=== PATIENT | female | born 1955 | race African-American/Black ===

== ENCOUNTER 2019-03-19 21:53 | Inpatient (IN) | payer SELFPAY ==
[2019-03-19] MEDS ORDERED: Pantoprazole 40 MG VIAL ONE (22:09)
[2019-03-19] MEDS ORDERED: Ondansetron PF 4 MG/2 ML Vial ONE (22:09)
--- NOTE | 2019-03-19 22:18 | RAD ---
Chest one view HISTORY: Vomiting. Dizziness. COMPARISON: 03/12/2017. FINDINGS: Cardiac silhouette is magnified by projection. Pulmonary vasculature is unremarkable. Media stinum is midline. No confluent airspace consolidation or evidence of pneumothorax. IMPRESSION: No active cardiopulmonary abnormalities are demonstrated.
[2019-03-19 22:25] LABS: Hemoglobin 11.5 g/dL (12.0-16.0); Mean Corpuscular HGB CONC 31.4 g/dL (32.0-36.0); Mean Corpuscular Hemoglobin 28.4 pg (27.0-31.0); Mean Corpuscular Volume 90.6 fL (78.0-98.0); RBC Distribution Width 12.2 % (11.5-14.5); Red Blood Cell (RBC) Count 4.06 mill/uL (4.20-5.40); White Blood Cell (WBC) Count 15.6 thou/uL (4.8-10.8)
[2019-03-19 22:31] LABS: INR-International Normal Ratio 1.1; PTT 27.4 SEC (22.9-36.1); Prothrombin Time 14.3 SEC (12.0-14.7)
[2019-03-19 22:40] LABS: ALT (SGPT) 33 U/L (8-55); AST (SGOT) 52 U/L (5-34); Albumin 3.3 g/dL (3.4-4.8); Alkaline Phosphatase 65 U/L (40-150); Anion Gap 14 mmol/L (10-20); BUN (Urea Nitrogen) 16 mg/dL (9.8-20.1); Bilirubin, Total 0.6 mg/dL (0.2-1.2); Calc. Creatinine Clearance 0 mL/min (70-130); Carbon Dioxide 26 mmol/L (23-31); Chloride 103 mmol/L (98-107); Estimated GFR-MDRD 68; Glucose 202 mg/dL (80-115); Potassium 4.2 mmol/L (3.5-5.1); Protein, Total 6.3 g/dL (6.0-8.3); Sodium 139 mmol/L (136-145)
[2019-03-19 22:42] LABS: Eosinophils 2 % (0-10); Large Platelets SLIGHT; Lymphocytes 52 % (21-51); MDiff Complete? YES; Mean Platelet Volume 11.4 fL (7.4-10.4); Monocytes 8 % (0-10); Neutrophil 38 % (42-75); Platelet Count 158 thou/uL (130-400); Platelet Morphology Comment Appears Adequate
[2019-03-19 23:29] LABS: Iron 142 ug/dL (50-170); Iron Binding Capacity, Total 384 mcg/dL (265-497)
[2019-03-20 02:01] LABS: Hemoglobin 9.3 g/dL (12.0-16.0)
[2019-03-20 02:06] VITALS: BMI 29.0
[2019-03-20 02:34] LABS: CKMB 1.2 ng/mL (0-6.6)
[2019-03-20] MEDS ORDERED: Sodium Chloride 0.9% 1,000 ML IV SCH (02:44)
[2019-03-20] MEDS ORDERED: Ondansetron PF 4 MG/2 ML Vial IVP PRN (03:53)
[2019-03-20] MEDS ORDERED: Dextrose 5% in Water 1,000 ML IV PRN (03:53)
[2019-03-20] MEDS ORDERED: Acetaminophen 325 MG TAB PO PRN (03:53)
[2019-03-20] MEDS ORDERED: Insulin Regular 300 UNITS/3 ML VIAL SC PRN (03:53)
[2019-03-20] MEDS ORDERED: Dextrose 50% Abboject 50 ML SYRINGE SLOW IVP PRN (03:53)
[2019-03-20] MEDS ORDERED: Acetaminophen 650 MG Suppository PR PRN (03:53)
[2019-03-20] MEDS ORDERED: Ondansetron ODT 4 MG TAB PO PRN (03:53)
[2019-03-20] MEDS ORDERED: Calcium Carbonate 500 MG ChewTAB PO PRN (03:53)
[2019-03-20] MEDS ORDERED: cloNIDine 0.1 MG TAB PO PRN (04:15)
--- NOTE | 2019-03-20 04:41 | HP ---
PRIMARY CARE PHYSICIAN: [facility]. CHIEF COMPLAINT: Hematemesis, melena with lightheadedness of one day duration. HISTORY OF PRESENT ILLNESS: The patient is a 63-year-old female with diabetes mellitus type 2, presented to the emergency room with above complaints. Yesterday evening, the patient had sudden onset of vomiting along with lightheadedness, dizziness, and shortness of breath. The vomitus contained fresh blood. She also noticed that her stools were dark earlier today. She also had generalized abdominal cramping. No recent weight loss reported. She denies any EGD, colonoscopy in the past. No fevers, chills, or use of NSAIDs reported. No chest pain, chest pain or palpitations reported. PAST MEDICAL HISTORY: Diabetes mellitus, type 2 and hypertension. PAST SURGICAL HISTORY: Hysterectomy. ALLERGIES: NO KNOWN DRUG ALLERGIES. CURRENT HOME MEDICATION: Novolin 70/30, 20 units daily. SOCIAL HISTORY: The patient smokes up to a half pack a day. No alcohol or drug use. She is full code, makes her own decision with the help of her family. FAMILY HISTORY: Positive for lung cancer in the father, liver cancer in the brother. Mother with diabetes, lupus, and hypertension. REVIEW OF SYSTEMS: All other review of systems was reviewed and was found negative. PHYSICAL EXAMINATION: VITAL SIGNS: Temperature 98.3, respirations 20, pulse rate of 116 with blood pressure of 127/91, O2 saturation 97% on room air. GENERAL: A 63-year-old female, in mild distress due to epigastric discomfort. HEENT: Head, atraumatic and normocephalic. Sclerae are anicteric. Dry mucous membranes. No oral lesion. NECK: Supple. No JVD appreciated. No carotid bruit. LUNGS: Clear to auscultation bilaterally. No wheezing, rales, or rhonchi. HEART: S1, S2 present. Regular rate and rhythm. No rubs or gallops appreciated. ABDOMEN: Soft, mild generalized tenderness mainly in the periumbilical region. No rebound or guarding. No costovertebral angle tenderness. Bowel sounds are present. EXTREMITIES: No edema or calf tenderness. NEUROLOGIC: Grossly nonfocal. Moves all 4 extremities. PSYCHIATRY: Alert, awake, oriented x3. SKIN: Warm and dry. LYMPH NODES: No palpable lymph nodes in the neck. PERIPHERAL VASCULAR: Radial pulse is palpable bilaterally. MUSCULOSKELETAL: No joint swelling or tenderness. LABORATORY FINDINGS: WBC on admission was 15.6 with hemoglobin 11.5, hematocrit 36.8, platelet of 158. Repeat hemoglobin 3 hours later is 9.3. PT/INR, PTT in normal range. Troponin 0.056 with normal CK-MB. Iron of 142, TIBC 384, ferritin 39.5. Sodium 139, potassium 4.2, chloride 103, bicarb 26, BUN of 16, creatinine 1.0, glucose of 202. AST of 52, otherwise LFTs in normal range. Albumin 3.3. IMAGING STUDIES: Chest x-ray by my review was negative for infiltrate or edema. EKG by my review showed sinus tachycardia. IMPRESSION: 1. Gastrointestinal bleeding, suspected secondary to peptic ulcer disease. 2. Acute blood loss anemia. 3. Leukocytosis, unlikely to be infectious. 4. Chronic kidney disease, stage 2. 5. Diabetes mellitus, type 2. 6. Elevated troponin secondary to demand ischemia/type 2 myocardial infarction. 7. Hypertension. PLAN: The patient will be monitored on the telemetry unit. We will continue Protonix drip along with IV fluids. We will check orthostatic vitals in a.m. We will recheck hemoglobin every 6 hours x3. We will repeat one more set of troponin with the next hemoglobin check. The patient will be kept n.p.o. Dr. Evans has been notified by the ER physician. The patient has been typed and screened. We will transfuse to keep hemoglobin more than 7. We will hold 70/30 as well as lisinopril for now. Plan of care was discussed with the patient in detail and she stated understanding. The patient will require 2 to 3 days for stabilization. Job ID: [id number]
[2019-03-20] MEDS: Sodium Chloride 0.9% 1,000 ML IV SCH ×3 (04:43→21:44)
[2019-03-20] MEDS: Insulin Regular 300 UNITS/3 ML VIAL SC PRN (05:44)
[2019-03-20 07:35] LABS: Hemoglobin 7.7 g/dL (12.0-16.0)
[2019-03-20 08:22] LABS: CKMB 1.5 ng/mL (0-6.6)
[2019-03-20] MEDS ORDERED: Lidocaine 1% PF 5 ML VIAL ONE (09:42)
[2019-03-20] MEDS ORDERED: EPINEPHrine 1 MG/10 ML Abboject SYRINGE ONE (09:42)
[2019-03-20] MEDS ORDERED: PHENYLEPHRINE-NS 100 MCG/ML 10 ML SYRINGE ONE (09:42)
[2019-03-20] MEDS ORDERED: Ondansetron PF 4 MG/2 ML Vial ONE (09:42)
[2019-03-20] MEDS ORDERED: PROPOFOL 200 MG/20 ML VIAL ONE (09:42)
[2019-03-20 13:10] LABS: Hemoglobin 7.3 g/dL (12.0-16.0)
[2019-03-20] MEDS ORDERED: Octreotide Acetate 100 MCG/ML VIAL SLOW IVP SCH (16:00)
[2019-03-20] MEDS ORDERED: Octreotide Acetate 1,250 MCG in Sodium Chloride 0.9% 250 ML 250 ML IVPB SCH (16:00)
[2019-03-20] MEDS ORDERED: Octreotide Acetate 50 MCG/ML AMP SLOW IVP SCH (16:00)
--- NOTE | 2019-03-20 17:51 | PDOC.PN ---
- Subjective Encounter Start Date: 03/20/19 Encounter Start Time: 17:49 Ms. Delgadillo was seen today in follow-up of GI- bleed. She says she feels achy all over. She had some more melenotic stools today. - Objective Resuscitation Status - Order Detail: 03/20/19 03:53 Resuscitation Status Routine Resuscitation Status: FULL: Full Resuscitation MAR Reviewed: Yes Vital Signs & Weight: Vital Signs (12 hours) Temp Pulse Pulse Resp BP BP BP 03/20/19 16:17 98.6 F 106 H 18 117/75 03/20/19 14:12 98.0 F 138 H 18 116/55 L 03/20/19 13:57 98.2 F 138 H 18 123/66 03/20/19 13:52 98.0 F 138 H 18 116/55 L 03/20/19 11:00 98.1 F 155 H 18 140/72 03/20/19 08:00 03/20/19 07:53 98.4 F 108 H 16 121/66 118/62 BP Pulse Ox 03/20/19 16:17 03/20/19 14:12 03/20/19 13:57 100 03/20/19 13:52 03/20/19 11:00 03/20/19 08:00 98 03/20/19 07:53 109/65 95 Weight Admit Weight 185 lb Weight 185 lb I&O: 03/19/19 03/20/19 03/21/19 06:59 06:59 06:59 Intake Total 800 Output Total 700 Balance 100 Result Diagrams: 03/20/19 13:03 03/19/19 22:08 Additional Labs: Accuchecks 03/20/19 03/20/19 03/20/19 16:39 10:58 04:50 POC Glucose 352 H 372 H 350 H 03/19/19 22:04 POC Glucose 191 H Phys Exam - Physical Examination HEENT: PERRLA Respiratory: no wheezing, no rales, no rhonchi, clear to auscultation bilateral Cardiovascular: RRR, no significant murmur, no rub Gastrointestinal: soft, non-tender, no distention, positive bowel sounds Musculoskeletal: no edema, pulses present Dx/Plan (1) GI bleed Code(s): K92.2 - GASTROINTESTINAL HEMORRHAGE, UNSPECIFIED Status: Acute (2) Acute blood loss anemia Code(s): D62 - ACUTE POSTHEMORRHAGIC ANEMIA Status: Acute (3) Diabetes mellitus type 2 in obese Code(s): E11.9 - TYPE 2 DIABETES MELLITUS WITHOUT COMPLICATIONS; E66.9 - OBESITY , UNSPECIFIED Status: Chronic (4) Hypertension Code(s): I10 - ESSENTIAL (PRIMARY) HYPERTENSION Status: Chronic - Plan * GI- bleed with acute blood loss anemia- continue IV Protonix * Plan is for EGD later today * Her H&H has dropped significantly- continue to transfuse as needed * DM- blood glucose is elevated- will re-start she home insulin, but at a lower dose and titrate - continue SSI.
[2019-03-20] MEDS ORDERED: Promethazine HCl 25 MG/ML VIAL SLOW IVP PRN (18:46)
[2019-03-20] MEDS ORDERED: Promethazine HCl 25 MG/ML VIAL IM PRN (18:46)
[2019-03-20] MEDS ORDERED: Ondansetron HCl/PF 4 MG/2 ML Vial IVP PRN (18:46)
[2019-03-20] MEDS ORDERED: Insulin Regular 300 UNITS/3 ML VIAL ONE (19:06)
--- NOTE | 2019-03-20 19:21 | OP ---
DATE OF PROCEDURE: 03/20/2019 PROCEDURES PERFORMED: Esophagogastroduodenoscopy with control of hemorrhage and biopsy. PREOPERATIVE DIAGNOSES: Gastrointestinal bleed and anemia of acute blood loss. DESCRIPTION OF PROCEDURE: Informed consent was obtained from the patient. She was sedated with total intravenous anesthesia. The bite block was placed and the endoscope was advanced easily to the second portion of the duodenum and retroflexion was performed in the stomach. The esophagus was normal. The GE junction was normal. The stomach had red blood staining throughout the entire mucosa of the stomach. This was washed off in the antrum and proximal body. The fundus was not well visualized due to some retained organized clot. There was a large 2 cm ulcer in the antrum, which was cratered and had a flat red vessel in the base. This was cauterized with a 10-Telugu Gold probe. After the site was injected with 4 mL of epinephrine 1:10,000, 1 mL per quadrant in four quadrants. Good hemostasis was confirmed with electrocautery of the vessel. There were a few other smaller 0.8 to 1 cm ulcers in the antrum as well. These did not have obvious stigmata of recent bleeding. The pylorus and first and second portions of the duodenum. There was red blood staining throughout the duodenum and this was washed clear without additional signs of bleeding source in these areas. IMPRESSION: 1. Large 2 cm antral ulcer with a flat red vessel, which was injected with epinephrine and cauterized with a 10-Telugu Gold probe and good hemostasis was confirmed. 2. Few smaller 0.8 to 1 cm antral ulcers without stigmata of recent bleeding. 3. Otherwise normal esophagogastroduodenoscopy. There were no varices. There was red blood and organized clot in the fundus that obscured views of the fundus and proximal gastric body. 4. Biopsies were obtained from the antrum of the stomach to rule out Helicobacter pylori and also from the ulcer edges to rule out neoplastic process. RECOMMENDATIONS: 1. Continue proton pump inhibitor drip. 2. Await histopathology. 3. Follow trend of the hemoglobin. 4. Octreotide can be discontinued. Job ID: [id number]
[2019-03-20] MEDS: Pantoprazole 80 MG, Admixture Fee 1 EACH in Sodium Chloride 0.9% 100 ML IVPB SCH (21:44)
--- NOTE | 2019-03-20 21:57 | CON ---
DATE OF CONSULTATION: 03/20/2019 CHIEF COMPLAINT: Vomited blood. HISTORY OF PRESENT ILLNESS: Ms. Delgadillo is a 63-year-old woman who last night around 8 or 9 p.m. had a sudden lower abdominal cramping, discomfort and urge to have a bowel movement. She passed a black tar like stool. A little bit later she vomited dark red blood with clots. She vomited red blood 3 more times after that. She came onto the emergency room for further care and has not had any further vomiting or bowel movements since that time. She has no ongoing abdominal pain. No preceding history of peptic ulcer or GI bleeding. She takes aspirin 81 mg daily. No other NSAIDs. Her weight has been stable. She has had no prior endoscopy or colonoscopy. PAST MEDICAL HISTORY: Diabetes mellitus type 2, hypertension. PAST SURGICAL HISTORY: Hysterectomy. FAMILY HISTORY: Her father had lung cancer. Brother had liver cancer. SOCIAL HISTORY: She smokes 5 or 6 cigarettes per day. No alcohol. She smoked marijuana in the remote past. ALLERGIES: NO KNOWN DRUG ALLERGIES. MEDICATIONS: Prior to admission Novolin 70/30, 20 units daily. REVIEW OF SYSTEMS: Negative x10 systems reviewed except as stated in history of present illness. PHYSICAL EXAMINATION: VITAL SIGNS: Temperature is 98, pulse has been running in the 130s, blood pressure 116/55. GENERAL: She is in no acute distress. She is alert and oriented x3. HEENT: Eyes have no scleral icterus. Oropharynx shows dry mucous membranes and otherwise no lesions. NECK: No cervical or supraclavicular lymphadenopathy. LUNGS: Clear to auscultation bilaterally. HEART: Tachycardic. S1, S2. ABDOMEN: Soft, nontender, and nondistended. Bowel sounds are present. EXTREMITIES: No lower extremity edema. RECTAL: Reveals dark red blood in the rectal vault. This appears more consistent with an upper GI source. LABORATORY DATA: White blood cell count 15.6, hemoglobin 7.3, platelets 158. INR 1.1. Ferritin is 39, iron 142, TIBC 348, creatinine 1.0, bilirubin 0.6, AST 52, ALT 33, albumin 3.3, alkaline phosphatase 65. IMPRESSION: 1. Upper gastrointestinal bleed presenting with hematemesis and melena. 2. Anemia of acute blood loss. Her hemoglobin has dropped from 11.5 on presentation last night down to 7.3 this afternoon. She is tachycardic with this. 3. Abnormal liver tests. Her AST is greater than the ALT. Her platelets are in the lower end of normal at 158. Her albumin is a little bit low. All these could point to chronic liver disease. Given that I would start her on octreotide until endoscopy is performed. RECOMMENDATIONS: 1. Proton pump inhibitor drip. 2. Endoscopy today. 3. Transfusion. 4. Octreotide until and after endoscopy. Job ID: [id number]
[2019-03-20] MEDS ORDERED: Pantoprazole 40 MG VIAL IVP SCH (23:45)
--- NOTE | 2019-03-21 00:17 | PDOC.EVN ---
Event Note - Event Note Event Note: RN called - Patient has several episodes of Melena/ H/H 7.3 earlier. Will check H/H now (was ordered at 1900 - not done since patient was in procedure)
[2019-03-21] MEDS: Sodium Chloride 0.9% 1,000 ML IV SCH ×3 (04:23→21:40)
[2019-03-21] MEDS: Pantoprazole 80 MG, Admixture Fee 1 EACH in Sodium Chloride 0.9% 100 ML IVPB SCH (04:23)
[2019-03-21 06:58] LABS: Anion Gap 9 mmol/L (10-20); BUN (Urea Nitrogen) 27 mg/dL (9.8-20.1); Calc. Creatinine Clearance 83 mL/min (70-130); Calcium 7.8 mg/dL (7.8-10.44); Carbon Dioxide 23 mmol/L (23-31); Chloride 111 mmol/L (98-107); Estimated GFR-MDRD 75; Glucose 295 mg/dL (80-115); Magnesium 1.5 mg/dL (1.6-2.6); Potassium 4.3 mmol/L (3.5-5.1); Sodium 139 mmol/L (136-145)
[2019-03-21 07:38] LABS: #Basophils 0.1 thou/uL (0.0-0.2); #Lymphocytes 5.2 thou/uL (1.20-3.40); #Monocytes 1.2 thou/uL (0.11-0.59); #Neutrophils 9.8 thou/uL (1.40-6.50); %Basophils 0.4 % (0.0-1.0); %Eosinophils 0.3 % (0.0-10.0); %Lymphocytes 32.1 % (21.0-51.0); %Monocytes 7.2 % (0.0-10.0); %Neutrophils 60.1 % (42.0-75.0); Hemoglobin 7.4 g/dL (12.0-16.0); Mean Corpuscular HGB CONC 31.8 g/dL (32.0-36.0); Mean Corpuscular Hemoglobin 28.7 pg (27.0-31.0); Mean Corpuscular Volume 90.3 fL (78.0-98.0); Mean Platelet Volume 10.8 fL (7.4-10.4); Platelet Count 119 thou/uL (130-400); RBC Distribution Width 13.4 % (11.5-14.5); Red Blood Cell (RBC) Count 2.56 mill/uL (4.20-5.40); White Blood Cell (WBC) Count 16.4 thou/uL (4.8-10.8)
[2019-03-21] MEDS ORDERED: HumuLIN 70/30 (300 UNITS/3 ML VIAL) SC SCH (09:00)
[2019-03-21] MEDS: Insulin Glargine 15 UNITS in Pre-Filled Syringe 1 EACH SC SCH (09:34)
[2019-03-21] MEDS: Insulin Regular 300 UNITS/3 ML VIAL SC PRN ×2 (09:35→12:00)
--- NOTE | 2019-03-21 17:36 | PRG ---
DATE OF SERVICE: 03/21/2019 SUBJECTIVE: Ms. Delgadillo has no abdominal pain. She is tolerating her diet well. Currently, she is on clear liquids. OBJECTIVE: VITAL SIGNS: Temperature 98.2, pulse 91, blood pressure 171/75. GENERAL: She is in no acute distress. Alert and oriented x3. LUNGS: Clear to auscultation bilaterally. HEART: Regular rate and rhythm without murmur. ABDOMEN: Soft, nontender, nondistended. Bowel sounds are present. EXTREMITIES: No lower extremity edema. LABORATORY DATA: Her white blood cell count 16.4, hemoglobin 7.4, platelets 119. Creatinine is 0.9. IMPRESSION: 1. Large antral ulcer with additional smaller antral ulcers. Vessel was cauterized in the base of the large ulcer yesterday. Biopsies from the ulcer edge and stomach to evaluate for Helicobacter pylori or neoplastic process are still pending. 2. Anemia of acute blood loss. Hemoglobin is 7.4 today. RECOMMENDATIONS: 1. Continue proton pump inhibitor drip through tomorrow. We can likely change to b.i.d. dosing day after tomorrow. 2. Recheck her hemoglobin tomorrow morning and if it drops at all, would transfuse a unit of blood. 3. Advance diet. Job ID: [id number]
--- NOTE | 2019-03-21 18:23 | PDOC.PN ---
- Subjective Encounter Start Date: 03/21/19 Encounter Start Time: 10:45 Ms. Delgadillo was seen today in follow-up of Peptic ulcer. She is feeling better today. She notes some back pain, but otherwise she is ok. - Objective Resuscitation Status - Order Detail: 03/20/19 03:53 Resuscitation Status Routine Resuscitation Status: FULL: Full Resuscitation MAR Reviewed: Yes Vital Signs & Weight: Vital Signs (12 hours) Temp Pulse Resp BP BP Pulse Ox 03/21/19 15:00 98.2 F 91 18 171/75 H 100 03/21/19 11:00 98.9 F 88 18 134/63 100 03/21/19 08:00 98.4 F 94 16 132/65 99 Weight Admit Weight 185 lb Weight 186 lb I&O: 03/20/19 03/21/19 03/22/19 06:59 06:59 06:59 Intake Total 3200 2776 Output Total 1700 1900 Balance 1500 876 Result Diagrams: 03/21/19 06:14 03/21/19 06:14 Additional Labs: Accuchecks 03/21/19 03/21/19 03/21/19 16:52 12:04 08:15 POC Glucose 146 H 396 H 327 H 03/21/19 03/21/19 03/20/19 04:39 01:05 21:35 POC Glucose 270 H 343 H 383 H 03/20/19 19:05 POC Glucose 322 H Phys Exam - Physical Examination HEENT: PERRLA Respiratory: no wheezing, no rales, no rhonchi, clear to auscultation bilateral Cardiovascular: RRR, no significant murmur, no rub Gastrointestinal: soft, non-tender, no distention, positive bowel sounds Musculoskeletal: no edema, pulses present Dx/Plan (1) GI bleed Code(s): K92.2 - GASTROINTESTINAL HEMORRHAGE, UNSPECIFIED Status: Acute (2) Acute blood loss anemia Code(s): D62 - ACUTE POSTHEMORRHAGIC ANEMIA Status: Acute (3) Diabetes mellitus type 2 in obese Code(s): E11.9 - TYPE 2 DIABETES MELLITUS WITHOUT COMPLICATIONS; E66.9 - OBESITY , UNSPECIFIED Status: Chronic (4) Hypertension Code(s): I10 - ESSENTIAL (PRIMARY) HYPERTENSION Status: Chronic - Plan * Gastric ulcer with hemorrhage- continue Protonix drip * Acute blood loss anemia- Will continue to monitor her H&H and transfuse as needed * HTN- blood pressure is stable * DM- blood glucose is stable .
[2019-03-22] MEDS: Pantoprazole 80 MG, Admixture Fee 1 EACH in Sodium Chloride 0.9% 100 ML IVPB SCH ×2 (04:40→16:17)
[2019-03-22 05:26] LABS: #Basophils 0.1 thou/uL (0.0-0.2); #Eosinphils 0.2 thou/uL (0.0-0.7); #Monocytes 0.8 thou/uL (0.11-0.59); #Neutrophils 5.5 thou/uL (1.40-6.50); %Basophils 0.6 % (0.0-1.0); %Eosinophils 2.2 % (0.0-10.0); %Lymphocytes 43.2 % (21.0-51.0); %Monocytes 6.9 % (0.0-10.0); %Neutrophils 47.2 % (42.0-75.0); Hemoglobin 6.3 g/dL (12.0-16.0); Mean Corpuscular Hemoglobin 30.2 pg (27.0-31.0); Mean Corpuscular Volume 91.6 fL (78.0-98.0); Mean Platelet Volume 10.8 fL (7.4-10.4); Platelet Count 103 thou/uL (130-400); RBC Distribution Width 13.6 % (11.5-14.5); White Blood Cell (WBC) Count 11.5 thou/uL (4.8-10.8)
[2019-03-22] MEDS: Sodium Chloride 0.9% 1,000 ML IV SCH ×2 (05:39→18:28)
[2019-03-22 05:43] LABS: Anion Gap 8 mmol/L (10-20); BUN (Urea Nitrogen) 15 mg/dL (9.8-20.1); Calc. Creatinine Clearance 93 mL/min (70-130); Calcium 7.4 mg/dL (7.8-10.44); Carbon Dioxide 21 mmol/L (23-31); Chloride 114 mmol/L (98-107); Estimated GFR-MDRD 81; Glucose 143 mg/dL (80-115); Potassium 3.7 mmol/L (3.5-5.1); Sodium 139 mmol/L (136-145)
[2019-03-22] MEDS: Insulin Glargine 15 UNITS in Pre-Filled Syringe 1 EACH SC SCH (09:13)
--- NOTE | 2019-03-22 11:19 | PRG ---
DATE OF SERVICE: 03/22/2019 SUBJECTIVE: Ms. Delgadillo has had no stool output today. She has no abdominal pain. She is tolerating a solid diet. OBJECTIVE: VITAL SIGNS: Temperature 97.8, pulse 79, blood pressure 164/73. GENERAL: She is in no acute distress. Alert and oriented x3. LUNGS: Clear to auscultation bilaterally. HEART: Regular rate and rhythm without murmur. ABDOMEN: Soft, nontender, nondistended. Bowel sounds are present. EXTREMITIES: No lower extremity edema. LABORATORY DATA: Hemoglobin is 6.3 today, down from 7.3 yesterday. IMPRESSION: 1. Large gastric ulcer with multiple small gastric ulcers as well. Gastric biopsies are pending to rule out neoplastic process or Helicobacter pylori. The ulcer itself does not appear obviously malignant. 2. Anemia of acute blood loss. RECOMMENDATIONS: 1. Proton pump inhibitor and continuous drip. She can possibly changed to b.i.d. dosing tomorrow. 2. Transfuse 2 units today. 3. She is tolerating a solid heart healthy diet. Job ID: [id number]
[2019-03-22] MEDS: Insulin Regular 300 UNITS/3 ML VIAL SC PRN (11:44)
--- NOTE | 2019-03-22 15:38 | PDOC.PN ---
- Subjective Encounter Start Date: 03/22/19 Encounter Start Time: 15:37 Ms. Delgadillo was seen today in follow-up of Gastric ulcer with bleed. She is beginning to feel better today. She does not have any new complaints. - Objective Resuscitation Status - Order Detail: 03/20/19 03:53 Resuscitation Status Routine Resuscitation Status: FULL: Full Resuscitation MAR Reviewed: Yes Vital Signs & Weight: Vital Signs (12 hours) Temp Pulse Pulse Resp BP BP BP 03/22/19 13:06 98.8 F 87 18 149/72 H 03/22/19 12:50 99.0 F 72 72 16 146/73 H 146/73 H 03/22/19 08:00 97.8 F 79 18 164/73 H 137/65 03/22/19 04:01 98.7 F 70 18 162/74 H BP Pulse Ox 03/22/19 13:06 97 03/22/19 12:50 97 03/22/19 08:00 137/72 100 03/22/19 04:01 100 Weight Admit Weight 185 lb Weight 194 lb 11.2 oz I&O: 03/21/19 03/22/19 03/23/19 06:59 06:59 06:59 Intake Total 3200 3016 0 Output Total 1700 1900 Balance 1500 1116 0 Result Diagrams: 03/22/19 04:50 03/22/19 04:50 Additional Labs: Accuchecks 03/22/19 03/22/19 03/22/19 11:26 08:43 04:35 POC Glucose 198 H 159 H 165 H 03/21/19 03/21/19 03/21/19 23:51 20:11 16:52 POC Glucose 192 H 117 H 146 H Phys Exam - Physical Examination HEENT: PERRLA Respiratory: no wheezing, no rales, no rhonchi, clear to auscultation bilateral Cardiovascular: RRR, no significant murmur, no rub Gastrointestinal: soft + mild epigastric tenderness, no rebound or guarding Musculoskeletal: no edema, pulses present Dx/Plan (1) GI bleed Code(s): K92.2 - GASTROINTESTINAL HEMORRHAGE, UNSPECIFIED Status: Acute Qualifiers: GI bleed type/associated pathology: gastric ulcer Qualified Code(s): K25.4 - Chronic or unspecified gastric ulcer with hemorrhage (2) Acute blood loss anemia Code(s): D62 - ACUTE POSTHEMORRHAGIC ANEMIA Status: Acute (3) Diabetes mellitus type 2 in obese Code(s): E11.9 - TYPE 2 DIABETES MELLITUS WITHOUT COMPLICATIONS; E66.9 - OBESITY , UNSPECIFIED Status: Chronic (4) Hypertension Code(s): I10 - ESSENTIAL (PRIMARY) HYPERTENSION Status: Chronic - Plan * Gastric Ulcer with hemorrhage- continue IV Protonix drip, which may be transitioned to twice a day dosing tomorrow * HTN-. blood pressure is stable * DM- blood glucose is stable- continue Lantus for now, and change back to 70/ 30 at discharge
[2019-03-23] MEDS: Pantoprazole 80 MG, Admixture Fee 1 EACH in Sodium Chloride 0.9% 100 ML IVPB SCH (00:50)
[2019-03-23] MEDS: Sodium Chloride 0.9% 1,000 ML IV SCH ×3 (05:44→12:57)
[2019-03-23 08:18] LABS: #Basophils 0.1 thou/uL (0.0-0.2); #Eosinphils 0.2 thou/uL (0.0-0.7); #Lymphocytes 3.1 thou/uL (1.20-3.40); #Monocytes 0.7 thou/uL (0.11-0.59); %Basophils 1.1 % (0.0-1.0); %Eosinophils 2.7 % (0.0-10.0); %Lymphocytes 33.7 % (21.0-51.0); %Monocytes 7.8 % (0.0-10.0); %Neutrophils 54.7 % (42.0-75.0); Hemoglobin 8.9 g/dL (12.0-16.0); Mean Corpuscular HGB CONC 33.6 g/dL (32.0-36.0); Mean Corpuscular Hemoglobin 30.1 pg (27.0-31.0); Mean Corpuscular Volume 89.6 fL (78.0-98.0); Mean Platelet Volume 10.8 fL (7.4-10.4); Platelet Count 113 thou/uL (130-400); RBC Distribution Width 13.1 % (11.5-14.5); Red Blood Cell (RBC) Count 2.97 mill/uL (4.20-5.40); White Blood Cell (WBC) Count 9.1 thou/uL (4.8-10.8)
[2019-03-23] MEDS ORDERED: Amlodipine 5 MG TAB PO SCH (09:00)
[2019-03-23] MEDS: Insulin Glargine 15 UNITS in Pre-Filled Syringe 1 EACH SC SCH (10:23)
--- NOTE | 2019-03-23 11:19 | PRG ---
DATE OF SERVICE: 03/23/2019 SUBJECTIVE: Ms. Delgadillo continues to do well without any abdominal pain. She is tolerating a regular diet well. She has had no bowel movement today. OBJECTIVE: VITAL SIGNS: Temperature is 98.7, pulse 76, blood pressure 177/75. GENERAL: She is in no acute distress. Alert and oriented x3. LUNGS: Clear to auscultation bilaterally. HEART: Regular rate and rhythm without murmur. ABDOMEN: Soft, nontender, nondistended. Bowel sounds are present. EXTREMITIES: No lower extremity edema. LABORATORY DATA: White blood cell count 9.1; hemoglobin 8.9, up from 6.3 yesterday after 2 units of transfusion; platelets 113. Creatinine 0.85. IMPRESSION: 1. Gastric ulcer with hemorrhage, status post electrocautery of visible vessel in the ulcer base. Biopsies were taken and are pending for Helicobacter pylori. 2. Anemia of acute blood loss, status post 2 units of transfusion yesterday. Her hemoglobin has improved from 6.3 to 8.9 after transfusion. RECOMMENDATIONS: 1. She should be ready to discharge home today on oral proton pump inhibitor. She can change to pantoprazole 40 mg twice daily for the next couple of weeks and then back off to once daily. 2. Await histopathology. 3. Avoid NSAIDs. She really has not been taking any NSAIDs prior to admission. 4. Anticipate discharge home today. 5. Follow up in GI clinic in 1 month. She can undergo screening colonoscopy and followup endoscopy at that point in 4 to 6 weeks. Job ID: [id number]
--- NOTE | 2019-03-23 12:00 | PDOC.PN ---
- Subjective Encounter Start Date: 03/23/19 Encounter Start Time: 11:59 Ms. Delgadillo was seen today in follow-up of Gastric ulcer with hemorrhage. She does not have any complaints. she says she feel fine. - Objective Resuscitation Status - Order Detail: 03/20/19 03:53 Resuscitation Status Routine Resuscitation Status: FULL: Full Resuscitation MAR Reviewed: Yes Vital Signs & Weight: Vital Signs (12 hours) Temp Pulse Pulse Resp BP BP BP 03/23/19 09:01 76 177/75 H 03/23/19 08:00 98.7 F 76 18 177/75 H 03/23/19 04:00 99.1 F 78 13 180/84 H 03/23/19 00:22 99.1 F 71 16 160/72 H 03/23/19 00:00 99 F 60 16 156/72 H Pulse Ox 03/23/19 09:01 03/23/19 08:00 96 03/23/19 04:00 99 03/23/19 00:22 95 03/23/19 00:00 98 Weight Admit Weight 185 lb Weight 186 lb I&O: 03/22/19 03/23/19 03/24/19 06:59 06:59 06:59 Intake Total 3016 3500 Output Total 1900 500 Balance 1116 3000 Result Diagrams: 03/23/19 07:25 03/22/19 04:50 Additional Labs: Accuchecks 03/23/19 03/23/19 03/22/19 11:09 05:19 20:48 POC Glucose 240 H 143 H 215 H 03/22/19 17:00 POC Glucose 189 H Phys Exam - Physical Examination HEENT: PERRLA Respiratory: no wheezing, no rales, no rhonchi, clear to auscultation bilateral Cardiovascular: RRR, no significant murmur, no rub Gastrointestinal: soft, non-tender, no distention, positive bowel sounds Musculoskeletal: no edema, pulses present Dx/Plan (1) GI bleed Code(s): K92.2 - GASTROINTESTINAL HEMORRHAGE, UNSPECIFIED Status: Acute Qualifiers: GI bleed type/associated pathology: gastric ulcer Qualified Code(s): K25.4 - Chronic or unspecified gastric ulcer with hemorrhage (2) Acute blood loss anemia Code(s): D62 - ACUTE POSTHEMORRHAGIC ANEMIA Status: Acute (3) Diabetes mellitus type 2 in obese Code(s): E11.9 - TYPE 2 DIABETES MELLITUS WITHOUT COMPLICATIONS; E66.9 - OBESITY , UNSPECIFIED Status: Chronic (4) Hypertension Code(s): I10 - ESSENTIAL (PRIMARY) HYPERTENSION Status: Chronic - Plan * Gastric ulcer with hemorrhage- her H&H had an appropriate response to transfusion. * She has been cleared for discharge by GI * stable for discharge home.
[2019-03-23] MEDS: Insulin Regular 300 UNITS/3 ML VIAL SC PRN (12:37)
[2019-03-23 12:49] VITALS: TEMP 98.3
[2019-03-23 14:14] VITALS: BP 133/71
--- NOTE | 2019-03-23 22:55 | DIS ---
DATE OF ADMISSION: 03/20/2019 DATE OF DISCHARGE: 03/23/2019 DISCHARGE DISPOSITION: Home. PRIMARY DISCHARGE DIAGNOSES: 1. Gastric ulcer with hemorrhage. 2. Acute blood loss anemia. 3. Diabetes mellitus type 2. 4. Hypertension. DISCHARGE MEDICATIONS: 1. Protonix 40 mg twice daily for two weeks, then down to 40 mg daily. 2. Norvasc 5 mg daily. 3. Continue her insulin 70/30 of 20 units daily. PROCEDURES DONE DURING THE ADMISSION: The patient had an upper endoscopy, which demonstrated a large 2 cm antral ulcer with a flat red vessel, which was injected with epinephrine and cauterized. There were also a few smaller antral ulcers without stigmata of recent bleed. Biopsies were taken. The patient also received 3 units of blood during the course of her hospital stay. CODE STATUS: Full code. ALLERGIES: NO KNOWN DRUG ALLERGIES. HOSPITAL COURSE: Ms. Delgadillo is a pleasant 63-year-old female who presented to the emergency room with complaints of hematemesis and melena. She was also feeling dizzy and lightheaded. She was found to have an acute blood loss anemia with her hemoglobin dropping as low as 6.3 during her admission. Her admitting hemoglobin was around 11.5. She was evaluated by Gastroenterology. She underwent upper endoscopy. She was found to have a large antral ulcer which appeared to be the source of the bleeding. This was cauterized and injected with epinephrine. Good hemostasis was established. During this time, she remained on a Protonix drip until the time of discharge. Her H and H remained stable following the procedure and she was ultimately able to be discharged home with close outpatient followup. She was instructed to discontinue smoking as well as discontinue the aspirin, which were risk factors for the peptic ulcer. She is also to follow up with her primary care physician in 1 to 2 weeks. Job ID: [id number]
== END 2019-03-23 15:00 | disposition home or self-care (01) | DRG 378 ==
LOC: ERS 21:53 → 2NO 03-20 00:44
PROVIDERS: ADMIT Internal Medicine; ATTEND Internal Medicine
PROC: 0W3P8ZZ Control Bleeding in Gastrointestinal Tract, Via Natural or Artificial Opening Endoscopic (ICD-10-PCS; principal; 2019-03-20)
PROC: 0DB78ZX Excision of Stomach, Pylorus, Via Natural or Artificial Opening Endoscopic, Diagnostic (ICD-10-PCS; 2019-03-20)
PROC: 30233N1 Transfusion of Nonautologous Red Blood Cells into Peripheral Vein, Percutaneous Approach (ICD-10-PCS; 2019-03-20)
DX: K25.4 Chronic or unspecified gastric ulcer with hemorrhage (principal); D62 Acute posthemorrhagic anemia; E11.9 Type 2 diabetes mellitus without complications; I10 Essential (primary) hypertension; F17.210 Nicotine dependence, cigarettes, uncomplicated; D72.829 Elevated white blood cell count, unspecified; E66.9 Obesity, unspecified; Z68.29 Body mass index [BMI] 29.0-29.9, adult; Z90.710 Acquired absence of both cervix and uterus; Z79.4 Long term (current) use of insulin
CPT/HCPCS: 36415; 36416; 36430; 71045; 80048; 80053; 82553; 82728; 83540; 83550; 83735; 84484; 85014; 85018; 85025; 85610; 85730; 86850; 86900; 86901; 88305; 88312; 88342; 93005; C9113; J1815; J2354; J2405; J3490; J7050; P9016

== ENCOUNTER 2019-04-29 14:54 | Observation (INO) | payer SELFPAY ==
[2019-04-29 15:56] LABS: #Basophils 0.1 thou/uL (0.0-0.2); #Eosinphils 0.1 thou/uL (0.0-0.7); #Lymphocytes 1.7 thou/uL (1.20-3.40); #Monocytes 0.5 thou/uL (0.11-0.59); #Neutrophils 4.4 thou/uL (1.40-6.50); %Basophils 0.8 % (0.0-1.0); %Eosinophils 1.1 % (0.0-10.0); %Lymphocytes 25.1 % (21.0-51.0); %Monocytes 6.8 % (0.0-10.0); %Neutrophils 66.2 % (42.0-75.0); Hemoglobin 10.5 g/dL (12.0-16.0); Mean Corpuscular HGB CONC 30.6 g/dL (32.0-36.0); Mean Corpuscular Volume 88.1 fL (78.0-98.0); RBC Distribution Width 16.3 % (11.5-14.5); White Blood Cell (WBC) Count 6.7 thou/uL (4.8-10.8)
--- NOTE | 2019-04-29 16:01 | RAD ---
XR Chest 1 View Portable HISTORY: Intermittent memory lapses COMPARISON: 03/19/2019 FINDINGS: The heart size is normal. The lungs are well expanded without focal areas of consolidation, pneumothorax or pleural effusions. IMPRESSION: No radiographic evidence of acute cardiopulmonary process.
[2019-04-29 16:14] LABS: ALT (SGPT) 40 U/L (8-55); AST (SGOT) 52 U/L (5-34); Albumin 3.8 g/dL (3.4-4.8); Alkaline Phosphatase 80 U/L (40-150); Anion Gap 13 mmol/L (10-20); BUN (Urea Nitrogen) 5 mg/dL (9.8-20.1); Bilirubin, Total 0.8 mg/dL (0.2-1.2); Calc. Creatinine Clearance 0 mL/min (70-130); Calcium 9.9 mg/dL (7.8-10.44); Carbon Dioxide 27 mmol/L (23-31); Chloride 94 mmol/L (98-107); Estimated GFR-MDRD 51; Globulin 3.2 g/dL (2.4-3.5); Potassium 4.1 mmol/L (3.5-5.1); Sodium 130 mmol/L (136-145)
--- NOTE | 2019-04-29 16:14 | CT ---
CT BRAIN WITHOUT CONTRAST: HISTORY: Intermittent memory lapses FINDINGS: Comparison is made with exam of 05/31/2016. No evidence of acute infarct, hemorrhage, midline shift or abnormal extra-axial fluid collections is seen. The ventricular size is appropriate and the basilar cisterns are patent. The bony calvarium is intact. The visualized paranasal sinuses and mastoid air cells are well aerated. IMPRESSION: No CT evidence of acute intracranial process.
[2019-04-29 16:17] LABS: Glucose 687 mg/dL (80-115); Hypochromia SLIGHT = 6-15 cells (100X) (0-5/hpf); MDiff Complete? YES; Platelet Count 167 thou/uL (130-400); Platelet Morphology Comment Appears Adequate; Polychromasia SLIGHT = 2-3 cells (100X) (0-2/hpf); Tear Drops SLIGHT = 2-5 cells (100X) (0-1/hpf)
[2019-04-29] MEDS ORDERED: Meclizine HCl 25 MG TAB ONE (19:51)
[2019-04-29 20:07] LABS: Bilirubin Negative (Negative); Blood, Urine Negative (Negative); Clarity Clear (Clear); Glucose, Urine (Dipstick) Greater than 1000 mg/dL (Negative); Leukocyte Negative Leu/uL (Negative); Nitrite Negative (Negative); Protein, Urine (Dipstick) Negative (Neg-Trace); Urobilinogen Normal mg/dL (Less than 2)
[2019-04-29 21:25] LABS: Anion Gap 13 mmol/L (10-20); BUN (Urea Nitrogen) 5 mg/dL (9.8-20.1); Calc. Creatinine Clearance 0 mL/min (70-130); Calcium 9.7 mg/dL (7.8-10.44); Carbon Dioxide 27 mmol/L (23-31); Chloride 96 mmol/L (98-107); Estimated GFR-MDRD 65; Glucose 458 mg/dL (80-115); Potassium 3.7 mmol/L (3.5-5.1); Sodium 132 mmol/L (136-145)
[2019-04-29 21:38] LABS: Base Excess-Venous 2.4 mmol/L (-2.0 to 3.0); CO2 Tension (PvCO2) 46.3 mmHg (40.0-50.0); Calcium, Ionized 1.19 mmol/L (See Comments:); Chloride 97 mmol/L (98-107); Hemoglobin - Calc 12.2 g/dL (12.0-16.0); Potassium 3.6 mmol/L (3.5-5.1); Sodium 135 mmol/L (138-145); T. Carbon Dioxide 29.4 mmol/L (22.0-28.0); vO2 Saturation-calc 89.5 % (60.0-85.0)
[2019-04-29] MEDS ORDERED: Insulin Regular 300 UNITS/3 ML VIAL ONE (21:58)
[2019-04-29 23:52] VITALS: BMI 26.2
[2019-04-30] MEDS ORDERED: Ondansetron ODT 4 MG TAB SL PRN (00:01)
[2019-04-30] MEDS ORDERED: HYDROcodone/Acetaminophen 5/325 mg Tablet PO PRN ×2 (00:01)
[2019-04-30] MEDS ORDERED: Ondansetron PF 4 MG/2 ML Vial IVP PRN (00:01)
[2019-04-30] MEDS ORDERED: Sodium Chloride 0.9% 1,000 ML IV SCH (00:01)
[2019-04-30] MEDS ORDERED: Dextrose 5% in Water 1,000 ML IV PRN (00:15)
[2019-04-30] MEDS ORDERED: Dextrose 50% Abboject 50 ML SYRINGE SLOW IVP PRN (00:15)
[2019-04-30] MEDS ORDERED: Insulin Glargine 12 UNITS in Pre-Filled Syringe 1 EACH SC SCH (00:30)
[2019-04-30] MEDS: Sodium Chloride 0.9% 1,000 ML IV SCH ×2 (01:07→09:23)
[2019-04-30 06:44] LABS: #Basophils 0.1 thou/uL (0.0-0.2); #Eosinphils 0.3 thou/uL (0.0-0.7); #Lymphocytes 3.9 thou/uL (1.20-3.40); #Monocytes 0.7 thou/uL (0.11-0.59); #Neutrophils 4.1 thou/uL (1.40-6.50); %Basophils 0.9 % (0.0-1.0); %Eosinophils 3.8 % (0.0-10.0); %Monocytes 7.7 % (0.0-10.0); %Neutrophils 44.5 % (42.0-75.0); Anion Gap 15 mmol/L (10-20); BUN (Urea Nitrogen) Less than 4 mg/dL (9.8-20.1); Calc. Creatinine Clearance 86 mL/min (70-130); Calcium 9.5 mg/dL (7.8-10.44); Carbon Dioxide 22 mmol/L (23-31); Chloride 105 mmol/L (98-107); Estimated GFR-MDRD 89; Glucose 162 mg/dL (80-115); Hemoglobin 10.6 g/dL (12.0-16.0); Mean Corpuscular HGB CONC 31.9 g/dL (32.0-36.0); Mean Corpuscular Hemoglobin 27.7 pg (27.0-31.0); Mean Corpuscular Volume 86.8 fL (78.0-98.0); Mean Platelet Volume 11.6 fL (7.4-10.4); Platelet Count 177 thou/uL (130-400); Potassium 3.9 mmol/L (3.5-5.1); RBC Distribution Width 16.4 % (11.5-14.5); Red Blood Cell (RBC) Count 3.83 mill/uL (4.20-5.40); Sodium 138 mmol/L (136-145); White Blood Cell (WBC) Count 9.2 thou/uL (4.8-10.8)
--- NOTE | 2019-04-30 07:49 | HP ---
PRIMARY CARE PHYSICIAN: The patient goes to [facility]. CODE STATUS: Full code. TIME OF EVALUATION: 11:50 a.m. CHIEF COMPLAINT: Blurred vision. HISTORY OF PRESENT ILLNESS: This is a 63-year-old female patient with past medical history of diabetes and noncompliance, hypertension, came to the hospital after having an episode of mild confusion, blurred vision, dizziness. The symptoms have been present for the past few days with no clear triggers, no alleviating factors. It looks like the patient was not very compliant with her diet and medication. Symptoms started insidiously and has been gradually getting worse, were reported as moderate. REVIEW OF SYSTEMS: CONSTITUTIONAL: No fever, chills, or generalized weakness. RESPIRATORY: No cough, sputum production, or shortness of breath. CARDIOVASCULAR: No chest pain, or palpitation. GASTROINTESTINAL: No nausea, vomiting, diarrhea, or abdominal pain. FISHING GUIDE: The patient is dizzy. No headache. Feeling lightheaded with blurred vision. GENITOURINARY: No burning on urination. EXTREMITIES: No leg swelling. All other systems were reviewed and negative except for the findings mentioned above. PAST MEDICAL HISTORY: As mentioned in the HPI. PAST SURGICAL HISTORY: Hysterectomy. PSYCHIATRIC HISTORY: No previous psychiatric history. SOCIAL HISTORY: The patient currently uses tobacco, smokes cigarettes, 2 cigarettes per day, reportedly trying to quit. Lives at home alone. KNOWN ALLERGIES: No known drug allergies. FAMILY HISTORY:Reviewed and non contributory for current presentation. REPORTED MEDICATIONS: Humulin 70/30, 20 units on a daily basis. PHYSICAL EXAMINATION: VITAL SIGNS: On presentation, blood pressure 169/90 with heart rate 107, respiratory rate was 16, temperature 98.9, pain was 0/10, oxygen saturation was 98% on room air. GENERAL APPEARANCE: The patient is alert, oriented, not in acute distress. HEENT: Eyes, normal conjunctivae. Moist oral mucosa. Anicteric. No JVD. RESPIRATORY: Bilateral air entry. No rales or wheezes. Symmetric expansion. CARDIOVASCULAR: Normal rate. Regular rhythm. No murmurs. No gallop. No edema. ABDOMEN: Soft. Normal bowel sounds. MUSCULOSKELETAL: Baseline range of motion and strength. SKIN: Warm, intact. No pallor. No rash. No redness. Capillary refill seems to be intact. NEUROLOGIC: No evidence of any new focal weakness. Cranial nerves seems to be intact. PSYCHIATRIC: The patient is in good mood. No anxiety. Optimal judgment. IMAGING DATA: EKG, normal sinus rhythm with a rate of 97, similar to old EKGs. Brain CT was done, the patient had no CTA evidence of acute intracranial process. Chest x-ray was done, no radiographic areas of acute cardiopulmonary process. LABORATORY DATA: Labs were done. The patient has white count 6.7, hemoglobin 10.5, platelet count 167. Blood gas; pH was 7.38. Sodium 130, potassium 4.1, chloride 94, carbon dioxide 27, anion gap 13, BUN 5, creatinine 1.27, second one 1.04, GFR 51 , glucose 687, the second one is 458. Serum osmolality 294, calcium 9.9, total bilirubin 0.8. AST 52, ALT 40, alkaline phosphatase 80. LABORATORY DATA: The urine reviewed was negative. ASSESSMENT AND PLAN: The patient will be placed in the hospital with following medical problems. 1. Uncontrolled diabetes and this is likely the reason for the blurred vision. The patient has been advised to be compliant. The patient will need to follow up with her primary care doctor to get a better management as outpatient. Insulin and diabetic treatment will need to be reconciled. She is only getting 70/30 once a day that seems not to be sufficient for her. 2. Normocytic anemia. This is mild. This can be followed as outpatient. No need for acute intervention at this point. 3. History of gastroesophageal reflux disease, reconcile home medications. 4. Noncompliance with diet. Advised to be compliant. 5. Deep venous thrombosis prophylaxis. Job ID: [id number] MTDD
[2019-04-30] MEDS ORDERED: HumuLIN 70/30 (300 UNITS/3 ML VIAL) SC SCH (09:00)
[2019-04-30] MEDS: Amlodipine 5 MG TAB PO SCH (09:24)
[2019-04-30] MEDS: Enoxaparin Sodium 40 MG/0.4 ML SYRINGE SC SCH (09:24)
[2019-04-30 10:11] LABS: Hemoglobin A1c 12.1 % (4.0-6.0)
[2019-04-30] MEDS: HumaLOG 300 UNITS/3 ML VIAL SC PRN ×2 (12:56→18:33)
--- NOTE | 2019-04-30 16:13 | PDOC.HOSPP ---
- Subjective Encounter Date: 04/30/19 Encounter Time: 16:11 Subjective: Patient states she feels well-rested and has not been able to sleep well for days. Feels closer to baseline but not 100% yet. Earlier today had an episode of confusion while in the bathroom. She recalls turning around in circles searching for the toilet and felt confused. She urinated on the floor. Was alert and oriented but is unsure why that happened. She states she felt dizzy but only in that brief moment. She states she often feels disoriented in the afternoon and feels this is associated with her glucose. It was elevated in 330s range when this happened. States she doesnt check it at home. No speech disturbances, vision changes or extremity weakness. - Objective Vital Signs & Weight: Vital Signs (12 hours) Temp Pulse Resp BP Pulse Ox 04/30/19 11:34 98.2 F 81 16 163/87 H 96 04/30/19 07:52 97.9 F 72 16 170/79 H 97 Weight Weight 167 lb 12.8 oz I&O: 04/29/19 04/30/19 05/01/19 06:59 06:59 06:59 Intake Total 950 855 Output Total 1100 Balance -150 855 Result Diagrams: 04/30/19 05:55 04/30/19 05:55 Additional Labs: Accuchecks 04/30/19 04/30/19 04/30/19 12:25 05:59 01:08 POC Glucose 308 H 147 H 246 H 04/29/19 04/29/19 22:59 22:09 POC Glucose 364 H 391 H ROS - Review of Systems Constitutional: denies: fever, chills, sweats, weakness, malaise, other Eyes: denies: pain, vision change, conjunctivae inflammation, eyelid inflammation, redness, other ENT: denies: ear pain, ear discharge, nose pain, nose discharge, nose congestion , mouth pain, mouth swelling, throat pain, throat swelling, other Respiratory: denies: cough, dry, shortness of breath, hemoptysis, SOB with excertion, pleuritic pain, sputum, wheezing, other Cardiovascular: denies: chest pain, palpitations, orthopnea, paroxysmal noc. dyspnea, edema, light headedness, other Gastrointestinal: denies: nausea, vomitting, abdominal pain, diarrhea, constipation, melena, hematochezia, other Genitourinary: denies: dysuria, frequency, incontinence, hematuria, retention, other Musculoskeletal: denies: neck pain, shoulder pain, arm pain, back pain, hand pain, leg pain, foot pain, other Skin: denies: rash, lesions, tami, bruising, other Neurological: reports: confusion (brief episode of confusion). denies: weakness , numbness, incoordination, change in speech, seizures, other - Medication Medications: Active Medications Generic Name Dose Route Start Last Admin Trade Name Freq PRN Reason Stop Dose Admin Amlodipine Besylate 5 mg 04/30/19 09:00 04/30/19 09:24 Norvasc PO 5 mg DAILY ANNE Administration Enoxaparin Sodium 40 mg 04/30/19 09:00 04/30/19 09:24 Lovenox SC 40 mg 0900 ANNE Administration Insulin Human Lispro 0 units 04/30/19 00:15 04/30/19 12:56 Humalog SC 5 unit .MILD SLIDING SCALE PRN Administration Mild Correctional Scale Pantoprazole Sodium 40 mg 04/30/19 09:00 04/30/19 09:24 Protonix PO 40 mg BID ANNE Administration - Exam NAD Eye: PERRL, anicteric sclera ENT: normocephalic atraumatic ENT - other findings: exopthalmos noted Neck: supple, symmetric, no JVD Heart: RRR, normal peripheral pulses Respiratory: CTAB, no wheezes, no rales, no ronchi, normal chest expansion, no tachypnea Gastrointestinal: soft, non-tender, non-distended, normal bowel sounds, no palpable masses Extremities: no cyanosis, no clubbing, no edema Skin: normal turgor Neurological: CN's grossly intact, normal sensation to touch, no weakness, no focal deficits Musculoskeletal: normal tone, normal strength, no muscle wasting Psychiatric: normal affect, normal behavior, A&O x 3 (Appeared sleepy this morning but more awake at this present time) Hosp A/P (1) Confusion Code(s): R41.0 - DISORIENTATION, UNSPECIFIED Status: Resolved Plan: Brain CT done on admission due to AMS was normal. Will obtain MRI brain. Will check LFTs and Ammonia. Urine drug screen requested as well. UA negative. No signs of infection. (2) Diabetes mellitus type 2 in obese Code(s): E11.9 - TYPE 2 DIABETES MELLITUS WITHOUT COMPLICATIONS; E66.9 - OBESITY , UNSPECIFIED Status: Chronic Plan: Will increase current insulin to BID. Continue ISS and monitor glucose. (3) Hypertension Code(s): I10 - ESSENTIAL (PRIMARY) HYPERTENSION Status: Chronic Plan: Continue meds and monitor BP.
[2019-04-30 16:42] LABS: ALT (SGPT) 36 U/L (8-55); AST (SGOT) 60 U/L (5-34); Albumin 3.2 g/dL (3.4-4.8); Alkaline Phosphatase 71 U/L (40-150); Bilirubin, Direct 0.4 mg/dL (0.1-0.3); Bilirubin, Total 0.6 mg/dL (0.2-1.2); Protein, Total 6.4 g/dL (6.0-8.3)
[2019-04-30 17:27] LABS: Amphetamine Not Detected (NotDetected); Barbiturates Screen Not Detected (NotDetected); Benzodiazepine Screen Not Detected (NotDetected); Cocaine Metabolite Screen Not Detected (NotDetected); Medtox Control Line Valid? VALID (VALID); Medtox Reader # READER 4; Methadone Not Detected (NotDetected); Methamphetamine Not Detected (NotDetected); Opiate Screen Not Detected (NotDetected); Oxycodone Screen Not Detected (NotDetected); Phencyclidine (PCP) Not Detected (NotDetected); THC/Cannabinoid Screen Detected (NotDetected); Tricyclic Screen Not Detected (NotDetected)
--- NOTE | 2019-04-30 18:15 | MRI ---
MRI brain without contrast: 04/30/2019 COMPARISON: None HISTORY: Confusion, altered mental status, hyperglycemia TECHNIQUE: Multiplanar multisequence MR imaging of the brain obtained without contrast FINDINGS: The diffusion weighted imaging demonstrates no evidence for acute infarction. Regional bone marrow signal intensity is grossly unremarkable. Probable hemangioma noted within the c alvarium posteriorly near the vertex. The axial gradient echo imaging demonstrates no evidence for intracranial hemorrhage. The arterial flow voids at the axial level of the skull base appear grossly unremarkable on the T2-we ighted imaging. The imaged paranasal sinuses and mastoid air cells demonstrate normal signal intensity. IMPRESSION: No evidence for acute infarction or intracranial hemorrhage.
[2019-04-30] MEDS: HumuLIN 70/30 (300 UNITS/3 ML VIAL) SC SCH (21:39)
[2019-05-01 09:03] LABS: #Basophils 0.1 thou/uL (0.0-0.2); #Eosinphils 0.3 thou/uL (0.0-0.7); #Lymphocytes 2.8 thou/uL (1.20-3.40); #Monocytes 0.7 thou/uL (0.11-0.59); #Neutrophils 3.4 thou/uL (1.40-6.50); %Basophils 0.9 % (0.0-1.0); %Eosinophils 3.9 % (0.0-10.0); %Lymphocytes 38.2 % (21.0-51.0); %Monocytes 9.9 % (0.0-10.0); %Neutrophils 47.1 % (42.0-75.0); Hemoglobin 10.8 g/dL (12.0-16.0); Mean Corpuscular HGB CONC 30.7 g/dL (32.0-36.0); Mean Corpuscular Hemoglobin 26.6 pg (27.0-31.0); Mean Corpuscular Volume 86.6 fL (78.0-98.0); Mean Platelet Volume 11.3 fL (7.4-10.4); Platelet Count 173 thou/uL (130-400); RBC Distribution Width 16.3 % (11.5-14.5); Red Blood Cell (RBC) Count 4.06 mill/uL (4.20-5.40); White Blood Cell (WBC) Count 7.2 thou/uL (4.8-10.8)
[2019-05-01 09:11] LABS: ALT (SGPT) 37 U/L (8-55); AST (SGOT) 68 U/L (5-34); Albumin 3.3 g/dL (3.4-4.8); Alkaline Phosphatase 73 U/L (40-150); Anion Gap 12 mmol/L (10-20); BUN (Urea Nitrogen) 5 mg/dL (9.8-20.1); Bilirubin, Total 0.6 mg/dL (0.2-1.2); Calc. Creatinine Clearance 82 mL/min (70-130); Calcium 9.6 mg/dL (7.8-10.44); Carbon Dioxide 26 mmol/L (23-31); Chloride 103 mmol/L (98-107); Estimated GFR-MDRD 84; Globulin 3.4 g/dL (2.4-3.5); Glucose 141 mg/dL (80-115); Potassium 3.8 mmol/L (3.5-5.1); Protein, Total 6.7 g/dL (6.0-8.3); Sodium 137 mmol/L (136-145)
[2019-05-01] MEDS: Enoxaparin Sodium 40 MG/0.4 ML SYRINGE SC SCH (09:11)
[2019-05-01] MEDS: Amlodipine 5 MG TAB PO SCH (09:11)
[2019-05-01] MEDS: HumuLIN 70/30 (300 UNITS/3 ML VIAL) SC SCH (09:11)
[2019-05-01] MEDS ORDERED: Clopidogrel Bisulfate 75 MG TAB ONE (09:17)
[2019-05-01 09:27] LABS: Thyroid Stimulating Hormone 3.7334 uIU/mL (0.35-4.94)
[2019-05-01] MEDS: HumaLOG 300 UNITS/3 ML VIAL SC PRN (12:00)
[2019-05-01 16:07] VITALS: BP 136/72; TEMP 99.1
--- NOTE | 2019-05-02 13:48 | DIS ---
DATE OF ADMISSION: 04/29/2019 DATE OF DISCHARGE: 05/01/2019 CONSULTING PHYSICIAN: None. DISCHARGE DIAGNOSES: 1. Uncontrolled diabetes mellitus secondary to noncompliance. 2. Altered mental status secondary to hyperglycemia, resolved. HOSPITAL COURSE: Ms. Delgadillo is a pleasant 63-year-old woman, who presented with mild confusion and dizziness, noted to have an elevated glucose of 687. She was not in DKA. treated in the emergency department, had significantly lower glucose on arrival to the floor. She is supposed to be on Humulin 70/30, 20 units once daily and the patient states that she has been compliant, though had she been complaint, her glucose would have remained in the 300s as it has been on that dose during her stay. We opted to increase her insulin to 20 units twice daily. Glucose improved significantly to the 130s. The patient remained asymptomatic. The remainder of her stay was without any complaints, therefore cleared for discharge home. She did undergo imaging with a CT of the brain which was negative and an MRI of the brain which was also unremarkable. Of note, she also underwent urine drug screen which was positive for cannabis and otherwise negative. A chest x-ray had also been done on initial presentation, which was unremarkable. The patient had no signs or symptoms of underlying infection throughout her stay. The patient was seen and examined on day of discharge. CONDITION: Stable. ACTIVITY: As tolerated. DIET: Heart healthy/diabetic diet. DISCHARGE MEDICATIONS: 1. The patient given a prescription for Humulin 70/30 with instructions to increase from 20 units every morning to 20 units twice daily. 2. Otherwise advised to resume all other home medications. FOLLOWUP: 1. The patient advised to follow up with her primary care physician within 1 to 2 weeks for further management. 2. She was counseled on the significance of having uncontrolled diabetes and life threatening effects of severe hyperglycemia. The patient expressed understanding. 3. She was seen by discussion. Cleared for discharge home. DISPOSITION: The patient is medically cleared for discharge home on 05/01/2019. Job ID: [id number]
== END 2019-05-01 17:56 | disposition home or self-care (01) ==
LOC: ERS 14:54 → 2SW 21:10
PROVIDERS: ADMIT Hospitalist; ATTEND Hospitalist
DX: E11.65 Type 2 diabetes mellitus with hyperglycemia (principal); R41.82 Altered mental status, unspecified; D64.9 Anemia, unspecified; K21.9 Gastro-esophageal reflux disease without esophagitis; E66.9 Obesity, unspecified; I10 Essential (primary) hypertension; F17.210 Nicotine dependence, cigarettes, uncomplicated; Z91.11 Patient's noncompliance with dietary regimen; Z68.26 Body mass index [BMI] 26.0-26.9, adult; Z79.899 Other long term (current) drug therapy
CPT/HCPCS: 36415; 36416; 70450; 70551; 71045; 80048; 80053; 80076; 80306; 81003; 82010; 82140; 82330; 82803; 83036; 83930; 84439; 84443; 84484; 85025; 93005; 96360; 96361; 96372; G0378; J1650; J1815; J8597

== ENCOUNTER 2020-09-26 23:18 | Emergency (ER) | payer MEDICARE, SELFPAY ==
--- NOTE | 2020-09-26 23:56 | RAD ---
Exam: XR Wrist 3 Lt View STANDARD HISTORY: Trauma. COMPARISON: None FINDINGS: There is an osseous density seen dorsal to the carpal bones with overlying subcutaneous soft tissue s welling. This may represent fracture of the triquetral bone. There is irregularity involving the medial aspect of the pisiform bone which may represent developmental irregularity or secondary to ivett or injury. No additional fracture is seen, and there is no dislocation. IMPRESSION: Prominent subcutaneous soft tissue swelling dorsal aspect of the wrist with osseous density seen dors al to the wrist which may represent fracture of the triquetral bone.
--- NOTE | 2020-09-27 | RAD ---
Exam: XR Foot Lt 3 View STANDARD HISTORY: Trauma. COMPARISON: None FINDINGS: There is mild osteoarthritis involving the first metatarsal phalangeal joint. There is mild metatarsu s primus varus and hallux valgus. Subtle lucencies are seen within the mid and distal aspect of the proximal phalanx of the great toe which may represent subtle nondisplaced fracture of the proximal ph alanx left great toe. No additional fracture seen, and there is no dislocation. Osteoarthritis involves the interphalangeal joints. Posterior and plantar calcaneal enthesophyte is identified. IMPRESSION: Question of a subtle nondisplaced fracture involving the distal aspect proximal phalanx left great to e. Correlation for point tenderness in this region is recommended. This could potentially represent nutrient channels. There is otherwise no fracture or dislocation involving the left foot.
[2020-09-27] MEDS ORDERED: Ibuprofen 800 MG TAB ONE (00:08)
== END 2020-09-27 00:44 | disposition home or self-care (01) ==
LOC: ERS 23:18
DX: S92.415A Nondisplaced fracture of proximal phalanx of left great toe, initial encounter for closed fracture (principal); S62.102A Fracture of unspecified carpal bone, left wrist, initial encounter for closed fracture; E11.9 Type 2 diabetes mellitus without complications; I10 Essential (primary) hypertension; F17.210 Nicotine dependence, cigarettes, uncomplicated; Z79.4 Long term (current) use of insulin; Z79.82 Long term (current) use of aspirin; W18.30XA Fall on same level, unspecified, initial encounter

== ENCOUNTER 2021-09-07 19:35 | Emergency (ER) | payer MEDICARE ==
[2021-09-07] MEDS ORDERED: Metoclopramide HCl 10 MG/2 ML VIAL ONE (20:10)
[2021-09-07] MEDS ORDERED: Ketorolac Tromethamine 30 MG/ML VIAL ONE (20:10)
[2021-09-07 20:26] LABS: Hemoglobin 13.6 g/dL (12.0-16.0); Mean Corpuscular HGB CONC 32.3 g/dL (32.0-36.0); Mean Corpuscular Hemoglobin 29.8 pg (27.0-31.0); Mean Corpuscular Volume 92.2 fL (78.0-98.0); RBC Distribution Width 12.1 % (11.5-14.5); Red Blood Cell (RBC) Count 4.56 mill/uL (4.20-5.40); White Blood Cell (WBC) Count 4.6 thou/uL (4.8-10.8)
[2021-09-07 20:53] LABS: Lymphocytes 24 % (21-51); MDiff Complete? YES; Mean Platelet Volume 11.4 fL (7.4-10.4); Monocytes 20 % (0-10); Neutrophil 55 % (42-75); Platelet Count 93 thou/uL (130-400); Platelet Morphology Comment Appears Decreased; RBC Morphology Normal
[2021-09-07 21:35] LABS: Albumin 3.2 g/dL (3.4-4.8)
[2021-09-07 21:36] LABS: Chloride 102 mmol/L (98-107); Potassium 4.2 mmol/L (3.5-5.1); Sodium 133 mmol/L (136-145)
[2021-09-07 21:37] LABS: Calcium 8.9 mg/dL (7.8-10.44)
[2021-09-07 21:38] LABS: Globulin 3.5 g/dL (2.4-3.5); Glucose 246 mg/dL (80-115); Protein, Total 6.7 g/dL (5.8-8.1)
[2021-09-07 21:39] LABS: Anion Gap 13 mmol/L (10-20); Carbon Dioxide 22 mmol/L (23-31)
[2021-09-07 21:40] LABS: Bilirubin, Total 0.9 mg/dL (0.2-1.2)
[2021-09-07 21:41] LABS: Alkaline Phosphatase 67 U/L (40-110); Calc. Creatinine Clearance 0 mL/min (70-130)
[2021-09-07 21:42] LABS: BUN (Urea Nitrogen) 6 mg/dL (9.8-20.1)
[2021-09-07 21:43] LABS: AST (SGOT) 58 U/L (5-34)
[2021-09-07 21:44] LABS: ALT (SGPT) 41 U/L (8-55); CK (CPK) 73 U/L (29-168); Lipase 14 U/L (8-78)
== END 2021-09-07 22:30 | disposition home or self-care (01) ==
LOC: ERS 19:35
DX: R51.9 Headache, unspecified (principal); R10.13 Epigastric pain; I10 Essential (primary) hypertension; E11.9 Type 2 diabetes mellitus without complications; F17.210 Nicotine dependence, cigarettes, uncomplicated; Z79.4 Long term (current) use of insulin; Z79.82 Long term (current) use of aspirin; Z79.899 Other long term (current) drug therapy
CPT/HCPCS: 70450; 71045; 80053; 82550; 83690; 83880; 84484; 85025; 93005; 96365; 96375; J1885; J2765

== ENCOUNTER 2021-10-10 15:10 | Emergency (ER) | payer MEDICARE | END 2021-10-10 17:35 | disposition home or self-care (01) | LOC: ERS 15:10 | DX: H11.31 Conjunctival hemorrhage, right eye (principal); E11.9 Type 2 diabetes mellitus without complications; I10 Essential (primary) hypertension; F17.210 Nicotine dependence, cigarettes, uncomplicated; Z79.82 Long term (current) use of aspirin; Z79.4 Long term (current) use of insulin; Z79.899 Other long term (current) drug therapy | CPT/HCPCS: 99282 ==